=== PATIENT | male | born 1990 | race Caucasian/White ===

== ENCOUNTER 2017-07-23 06:27 | Emergency (ER) | payer BC ==
--- NOTE | 2017-07-23 06:40 | EDM.PDOC ---
ED HPI GENERAL MEDICAL PROBLEM - General Chief Complaint: Respiratory Problem Stated Complaint: COUGH Time Seen by Provider: 07/23/17 06:39 - History of Present Illness INITIAL COMMENTS - FREE TEXT/NARRATIVE: HISTORY AND PHYSICAL: History of present illness: Patient's 27-year-old white male who presents with concern of nonproductive cough for last several days he denies fever chills nausea vomiting shortness of breath or other concern he denies influenza immunization. He is a smoker Review of systems: As per history of present illness and below otherwise all systems reviewed and negative. Past medical history: As per history of present illness and as reviewed below otherwise noncontributory. Surgical history: As per history of present illness and as reviewed below otherwise noncontributory. Social history: No reported history of drug or alcohol abuse. Family history: As per history of present illness and as reviewed below otherwise noncontributory. Physical exam: HEENT: Atraumatic, normocephalic, pupils reactive, negative for conjunctival pallor or scleral icterus, mucous membranes moist, throat clear, neck supple, nontender, trachea midline. Lungs: Clear to auscultation, breath sounds equal bilaterally, chest nontender. Heart: S1S2, regular, negative for clicks, rubs, or JVD. Abdomen: Soft, nondistended, nontender. Negative for masses or hepatosplenomegaly. Negative for costovertebral tenderness. Pelvis: Stable nontender. Genitourinary: Deferred. Rectal: Deferred. Extremities: Atraumatic, negative for cords or calf pain. Neurovascular unremarkable. Neuro: Awake, alert, oriented. Cranial nerves II through XII unremarkable. Cerebellum unremarkable. Motor and sensory unremarkable throughout. Exam nonfocal. Diagnostics: Influenza screen chest x-ray Therapeutics: None Impression: #1 tracheobronchitis Definitive disposition and diagnosis as appropriate pending reevaluation and review of above. - Related Data Allergies Allergy/AdvReac Type Severity Reaction Status Date / Time No Known Allergies Allergy Verified 07/23/17 06:39 Home Meds: Home Meds . [No Known Home Meds] 07/23/17 [History] ED ROS GENERAL - Review of Systems Review Of Systems: ROS reveals no pertinent complaints other than HPI. ED EXAM, GENERAL - Physical Exam Exam: See Below (See dictation) Course - Vital Signs Last Recorded V/S: Last Vital Signs Temp 37.2 C 07/23/17 06:27 Pulse 80 07/23/17 06:27 Resp 18 07/23/17 06:27 BP 130/82 07/23/17 06:27 Pulse Ox 97 07/23/17 06:27 - Orders/Labs/Meds Orders: Active Orders 24 hr Category Date Time Status Chest 2V [CR] Stat Exams 07/23/17 06:39 Taken CULTURE STREP A CONFIRMATION [RM] Stat Lab 07/23/17 06:45 Results STREP SCRN A RAPID W CULT CONF [RM] Stat Lab 07/23/17 06:45 Results Departure - Departure Time of Disposition: 06:40 Disposition: Home, Self-Care 01 Condition: Good Clinical Impression: Tracheobronchitis - Discharge Information Instructions: Acute Bronchitis, Adult, [id number] Referrals: [facility] [Outside] PCP,None [Primary Care Provider] - Forms: ED Department Discharge Additional Instructions: The following information is given to patients seen in the emergency department who are being discharged to home. This information is to outline your options for follow-up care. We provide all patients seen in our emergency department with a follow-up referral. The need for follow-up, as well as the timing and circumstances, are variable depending upon the specifics of your emergency department visit. If you don't have a primary care physician on staff, we will provide you with a referral. We always advise you to contact your personal physician following an emergency department visit to inform them of the circumstance of the visit and for follow-up with them and/or the need for any referrals to a consulting specialist. The emergency department will also refer you to a specialist when appropriate. This referral assures that you have the opportunity for followup care with a specialist. All of these measure are taken in an effort to provide you with optimal care, which includes your followup. Under all circumstances we always encourage you to contact your private physician who remains a resource for coordinating your care. When calling for followup care, please make the office aware that this follow-up is from your recent emergency room visit. If for any reason you are refused follow-up, please contact the [facility] emergency department at and asked to speak to the emergency department charge nurse. Albuterol as prescribed. Smoking return as needed as discussed - My Orders Last 24 Hours: My Active Orders 07/23/17 06:39 Chest 2V [CR] Stat 07/23/17 06:45 CULTURE STREP A CONFIRMATION [RM] Stat STREP SCRN A RAPID W CULT CONF [RM] Stat - Assessment/Plan Last 24 Hours: My Active Orders 07/23/17 06:39 Chest 2V [CR] Stat 07/23/17 06:45 CULTURE STREP A CONFIRMATION [RM] Stat STREP SCRN A RAPID W CULT CONF [RM] Stat
--- NOTE | 2017-07-24 18:17 | CR ---
EXAM DATE: 07/23/17 PATIENT'S AGE: 27 Patient: EDI ARROYO Facility: [place], [place] Site . Site : 1990 Study: XRay Chest [id number] 6:54:52 AM Ordering Physician: Ne Moran Final Report: INDICATION: Cough and congestion for 4 days. TECHNIQUE: PA and lateral chest x-ray. FINDINGS: There has either been a deep inspiration or the lungs are hyperinflated. Lungs are clear without infiltrate. Heart size normal. Chest otherwise negative without acute disease. Dictated by Hector Fishman MD @ Jul 23 2017 7:00AM (Electronic Signature) Report Signed by Proxy. LA[place]
== END 2017-07-23 07:39 | disposition home or self-care (01) ==
LOC: MW.ED 06:27
DX: J40 Bronchitis, not specified as acute or chronic (principal)
CPT/HCPCS: 71046; 71046-26; 87081; 87804; 87880; 99283